=== PATIENT | female | born 1985 | race Caucasian/White ===

== ENCOUNTER → 2016-09-03 | Outpatient (CLI) | payer BC ==
--- NOTE | 2016-09-03 11:31 | XR ---
EXAMINATION TYPE: XR chest 2V DATE OF EXAM ORDERED: 09/03/2016 11:21 AM HISTORY: SARCOID,TMJ PAIN. REFERENCE: None. FINDINGS: The lungs are clear. Pleural spaces are clear. Heart size is normal. IMPRESSION: NORMAL CHEST.
--- NOTE | 2016-09-03 11:32 | XR ---
EXAMINATION TYPE: XR hand complete LT DATE OF EXAM ORDERED: 09/03/2016 11:21 AM HISTORY: ARTHRITIS. COMPARISON: None. FINDINGS: Bone mineral density is maintained. Bony alignment is maintained. No erosive changes seen. There is no fracture or dislocation. Joint spaces appear well maintained. IMPRESSION: NORMAL HAND.
[2016-09-05 12:23] LABS: HLA B27 NEGATIVE; HLA B27 Comment SEEBELOW
== END | disposition home or self-care (01) ==
LOC: LABWHC1 10:37
PROVIDERS: ATTEND Internal Medicine Rheumatology
DX: D86.9 Sarcoidosis, unspecified (principal); M26.629 Arthralgia of temporomandibular joint, unspecified side; M19.90 Unspecified osteoarthritis, unspecified site; M06.4 Inflammatory polyarthropathy
CPT/HCPCS: 36415; 71020; 86812

== ENCOUNTER 2019-02-14 19:09 | Emergency (ER) | payer BC ==
[2019-02-14 19:20] VITALS: TEMP 98.3
[2019-02-14] MEDS ORDERED: SODIUM CHLORIDE 0.9% 1,000 ML IV ONE (19:48)
--- NOTE | 2019-02-14 20:09 | ED ---
General Adult HPI - General Chief complaint: Extremity Problem,Nontraumatic Stated complaint: Hand swelling, rash Time Seen by Provider: 02/14/19 19:27 Source: patient Mode of arrival: ambulatory Limitations: no limitations - History of Present Illness Initial comments: 33-year-old female patient presents to the emergency department today with multiple complaints. Patient states since Monday she has been feeling unwell. Patient states that she had a red, painful lump perform in her right armpit. Patient states [place] is at the beach [place] when she started to feel hot with painful joints. Patient states that she took some ibuprofen. When she got home she had a sore throat and bilateral ear pain. States that she took her temperature was 99.9F. Patient states that symptoms resolved the next day however she still feels achy like her skin is tight over her joints. She states she also developed some pain to the bottom of her left foot. States today she noticed a rash over her legs. States the rash is not itchy. Patient does have past medical history of an undiagnosed autoimmune disorder, MTHFR, and arthritis. Patient states she has been very fatigued and not able to get out of bed much. Patient did go camping over weekend about a week and half ago. States she did sustain several bugbites, but she is unsure what they were from. She denies any other travel. Patient denies any recent rash, shortness breath, chest pain, abdominal pain, nausea, vomiting, diarrhea, constipation, back pain, numbness, tingling, dizziness, hematuria, dysuria, urinary urgency, urinary frequency, visual changes, or any other complaints. - Related Data Home Medications Medication Instructions Recorded Confirmed Ibuprofen [Motrin Ib] 400 mg PO Q6H PRN 02/14/19 02/14/19 Previous Rx's Medication Instructions Recorded predniSONE 50 mg PO DAILY #5 tablet 02/14/19 Allergies Allergy/AdvReac Type Severity Reaction Status Date / Time acetaminophen [From Vicodin] AdvReac Nausea & Verified 02/14/19 19:58 Vomiting hydrocodone bitartrate AdvReac Nausea & Verified 02/14/19 19:58 [From Vicodin] Vomiting iron AdvReac Nausea & Verified 02/14/19 19:58 Vomiting PAPER TAPE Allergy Rash/Hives Uncoded 02/14/19 19:58 Review of Systems ROS Statement: Those systems with pertinent positive or pertinent negative responses have been documented in the HPI. ROS Other: All systems not noted in ROS Statement are negative. Past Medical History Additional Past Medical History / Comment(s): mthfr clotting disorder, factor 2 History of Any Multi-Drug Resistant Organisms: None Reported Past Surgical History: Adenoidectomy, Tonsillectomy Additional Past Surgical History / Comment(s): nasal cauterizations, rhinoplasty, D&C, Past Psychological History: No Psychological Hx Reported Smoking Status: Never smoker Past Alcohol Use History: None Reported Past Drug Use History: None Reported General Exam Limitations: no limitations General appearance: alert, in no apparent distress, other (This is a well- developed, well-nourished adult female patient in no acute distress. Vital signs upon presentation are temperature 98.3F, pulse 108, respirations 18, blood pressure 149/77, pulse ox 100% on room air.) Eye exam: Present: normal appearance, PERRL, EOMI. Absent: scleral icterus, conjunctival injection, periorbital swelling ENT exam: Present: normal exam, normal oropharynx, mucous membranes moist Respiratory exam: Present: normal lung sounds bilaterally. Absent: respiratory distress, wheezes, rales, rhonchi, stridor Cardiovascular Exam: Present: regular rate, normal rhythm, normal heart sounds. Absent: systolic murmur, diastolic murmur, rubs, gallop, clicks GI/Abdominal exam: Present: soft, normal bowel sounds. Absent: distended, tenderness, guarding, rebound, rigid Neurological exam: Present: alert, oriented X3, CN II-XII intact Psychiatric exam: Present: normal affect, normal mood Skin exam: Present: warm, dry, intact, normal color, rash (Petechial rash noted to the bilateral lower extremities) Expanded Type of lesion: Present: abscess (small 1cm abscess noted to right axillary region, area is indurated. No fluctuance. Tender to touch. ) Course Vital Signs 02/14/19 19:14 Temperature 98.3 F Pulse Rate 108 H Respiratory 18 Rate Blood Pressure 149/77 O2 Sat by Pulse 100 Oximetry Medical Decision Making - Medical Decision Making 33-year-old female patient presents to the emergency department today for evaluation of multiple complaints. Physical examination was significant for a small 1cm indurated abscess to the right axillary region and a petechial rash to the bilateral lower extremities. Patient was also complaining of joint pain, left foot pain, and right thenar eminence swelling. Labs reviewed and were unremarkable. Lyme panel is pending. IV fluids given. Upon re-evaluation patient is resting comfortably in bed. Denies any improvement in symptoms. I discussed all findings. Did discuss that symptoms could be related to a viral illness. She will be given a short course of steroids and instructed to follow-up with her primary care physician for further evaluation as soon as possible. Return parameters discussed in detail. She verbalizes understanding and agrees with this plan. - Lab Data Result diagrams: 02/14/19 20:10 02/14/19 20:10 Lab Results 02/14/19 02/14/19 02/14/19 Range/Units 20:10 20:10 20:10 WBC 5.2 (3.8-10.6) k/uL RBC 4.45 (3.80-5.40) m/uL Hgb 13.2 (11.4-16.0) gm/dL Hct 38.0 (34.0-46.0) % MCV 85.5 (80.0-100.0) fL MCH 29.7 (25.0-35.0) pg MCHC 34.8 (31.0-37.0) g/dL RDW 13.3 (11.5-15.5) % Plt Count 173 (150-450) k/uL Neutrophils % 59 % Lymphocytes % 26 % Monocytes % 6 % Eosinophils % 5 % Basophils % 1 % Neutrophils # 3.1 (1.3-7.7) k/uL Lymphocytes # 1.4 (1.0-4.8) k/uL Monocytes # 0.3 (0-1.0) k/uL Eosinophils # 0.3 (0-0.7) k/uL Basophils # 0.0 (0-0.2) k/uL PT 9.7 (9.0-12.0) sec INR 0.9 (<1.2) APTT 27.2 (22.0-30.0) sec Sodium 140 (137-145) mmol/L Potassium 3.9 (3.5-5.1) mmol/L Chloride 103 (98-107) mmol/L Carbon Dioxide 26 (22-30) mmol/L Anion Gap 11 mmol/L BUN 11 (7-17) mg/dL Creatinine 0.71 (0.52-1.04) mg/dL Est GFR (CKD-EPI)AfAm >90 (>60 ml/min/1.73 sqM) Est GFR (CKD-EPI)NonAf >90 (>60 ml/min/1.73 sqM) Glucose 92 (74-99) mg/dL Calcium 9.4 (8.4-10.2) mg/dL Total Bilirubin 0.3 (0.2-1.3) mg/dL AST 40 H (14-36) U/L ALT 49 (9-52) U/L Alkaline Phosphatase 84 (38-126) U/L Total Protein 7.5 (6.3-8.2) g/dL Albumin 4.4 (3.5-5.0) g/dL Urine Color Urine Appearance (Clear) Urine pH (5.0-8.0) Ur Specific [place] (1.001-1.035) Urine Protein (Negative) Urine Glucose (UA) (Negative) Urine Ketones (Negative) Urine Blood (Negative) Urine Nitrite (Negative) Urine Bilirubin (Negative) Urine Urobilinogen (<2.0) mg/dL Ur Leukocyte Esterase (Negative) Urine HCG, Qual (Not Detectd) 02/14/19 02/14/19 Range/Units 20:30 20:30 WBC (3.8-10.6) k/uL RBC (3.80-5.40) m/uL Hgb (11.4-16.0) gm/dL Hct (34.0-46.0) % MCV (80.0-100.0) fL MCH (25.0-35.0) pg MCHC (31.0-37.0) g/dL RDW (11.5-15.5) % Plt Count (150-450) k/uL Neutrophils % % Lymphocytes % % Monocytes % % Eosinophils % % Basophils % % Neutrophils # (1.3-7.7) k/uL Lymphocytes # (1.0-4.8) k/uL Monocytes # (0-1.0) k/uL Eosinophils # (0-0.7) k/uL Basophils # (0-0.2) k/uL PT (9.0-12.0) sec INR (<1.2) APTT (22.0-30.0) sec Sodium (137-145) mmol/L Potassium (3.5-5.1) mmol/L Chloride (98-107) mmol/L Carbon Dioxide (22-30) mmol/L Anion Gap mmol/L BUN (7-17) mg/dL Creatinine (0.52-1.04) mg/dL Est GFR (CKD-EPI)AfAm (>60 ml/min/1.73 sqM) Est GFR (CKD-EPI)NonAf (>60 ml/min/1.73 sqM) Glucose (74-99) mg/dL Calcium (8.4-10.2) mg/dL Total Bilirubin (0.2-1.3) mg/dL AST (14-36) U/L ALT (9-52) U/L Alkaline Phosphatase (38-126) U/L Total Protein (6.3-8.2) g/dL Albumin (3.5-5.0) g/dL Urine Color Yellow Urine Appearance Clear (Clear) Urine pH 5.5 (5.0-8.0) Ur Specific [place] 1.016 (1.001-1.035) Urine Protein Negative (Negative) Urine Glucose (UA) Negative (Negative) Urine Ketones Negative (Negative) Urine Blood Negative (Negative) Urine Nitrite Negative (Negative) Urine Bilirubin Negative (Negative) Urine Urobilinogen <2.0 (<2.0) mg/dL Ur Leukocyte Esterase Negative (Negative) Urine HCG, Qual Not Detected (Not Detectd) Disposition Clinical Impression: Petechiae, Joint pain, Viral syndrome, Swelling of right hand, Foot pain, Abscess of right axilla Disposition: HOME SELF-CARE Condition: Good Instructions (If sedation given, give patient instructions): Abscess (ED), Viral Syndrome (ED) Additional Instructions: Increase fluids. Complete steroid prescription in full. Rest. Follow-up with your primary care physician for recheck in 1-2 days. Return to the emergency department immediately for any new, worsening, or concerning symptoms Prescriptions: predniSONE 50 mg PO DAILY #5 tablet Is patient prescribed a controlled substance at d/c from ED?: No Referrals: Navin Angela MD [Primary Care Provider] - 1-2 days Time of Disposition: 22:13
[2019-02-14 20:22] LABS: Basophils % (A) 1 %; Eosinophils # (A) 0.3 k/uL (0-0.7); Eosinophils % (A) 5 %; HGB 13.2 gm/dL (11.4-16.0); Lymphocytes # (A) 1.4 k/uL (1.0-4.8); Lymphocytes % (A) 26 %; MCH 29.7 pg (25.0-35.0); MCHC 34.8 g/dL (31.0-37.0); MCV 85.5 fL (80.0-100.0); Mean Platelet Volume 7.1; Monocytes # (A) 0.3 k/uL (0-1.0); Monocytes % (A) 6 %; Neutrophils # (A) 3.1 k/uL (1.3-7.7); Neutrophils % (A) 59 %; Platelet Count 173 k/uL (150-450); RBC 4.45 m/uL (3.80-5.40); RDW 13.3 % (11.5-15.5); WBC 5.2 k/uL (3.8-10.6)
[2019-02-14 20:42] LABS: ALT 49 U/L (9-52); AST 40 U/L (14-36); African American GFR (CKD) >90 (>60 ml/min/1.73 sqM); Albumin 4.4 g/dL (3.5-5.0); Alkaline Phosphatase 84 U/L (38-126); Anion Gap 11 mmol/L; Blood Urea Nitrogen 11 mg/dL (7-17); Calcium 9.4 mg/dL (8.4-10.2); Carbon Dioxide 26 mmol/L (22-30); Chloride 103 mmol/L (98-107); Glucose 92 mg/dL (74-99); Potassium 3.9 mmol/L (3.5-5.1); Sodium 140 mmol/L (137-145); Total Bilirubin 0.3 mg/dL (0.2-1.3); Total Protein 7.5 g/dL (6.3-8.2)
[2019-02-14 20:45] LABS: INR 0.9 (<1.2); Partial Thromboplastin Time 27.2 sec (22.0-30.0); Prothrombin Time 9.7 sec (9.0-12.0)
[2019-02-14 21:35] LABS: Appearance,Urine Clear (Clear); Bilirubin,Urine Negative (Negative); Blood,Urine Negative (Negative); Color,Urine Yellow; Glucose,Urine (UA) Negative (Negative); Ketones,Urine Negative (Negative); Leukocyte Esterase,Urine Negative (Negative); Nitrite,Urine Negative (Negative); PH, Urine 5.5 (5.0-8.0); Protein,Urine Negative (Negative); Specific Gravity,Urine 1.016 (1.001-1.035); Urobilinogen,Urine <2.0 mg/dL (<2.0)
[2019-02-14] MEDS ORDERED: predniSONE 50 MG TAB PO STA (22:11)
[2019-02-14 22:37] VITALS: BP 107/60; PULSE 77; RESP 16
[2019-02-15 09:44] LABS: Lyme IgG/IgM 0.32 Index
== END 2019-02-14 22:44 | disposition home or self-care (01) ==
LOC: EC 19:09
DX: B34.9 Viral infection, unspecified (principal); L02.411 Cutaneous abscess of right axilla; R23.3 Spontaneous ecchymoses; M79.89 Other specified soft tissue disorders; M79.672 Pain in left foot; R21 Rash and other nonspecific skin eruption; M19.90 Unspecified osteoarthritis, unspecified site; Z88.5 Allergy status to narcotic agent; Z88.6 Allergy status to analgesic agent; Z91.048 Other nonmedicinal substance allergy status; Z79.1 Long term (current) use of non-steroidal anti-inflammatories (NSAID); Z90.89 Acquired absence of other organs
CPT/HCPCS: 36415; 80053; 85025; 85610; 85730; 81003; 81025; 86618; 99283; 96360; 96361; J7512

== ENCOUNTER → 2021-04-28 | Outpatient (CLI) | payer BC ==
--- NOTE | 2021-04-28 15:56 | US ---
EXAMINATION TYPE: US st tissue neck DATE OF EXAM: 04/28/2021 COMPARISON: NONE CLINICAL HISTORY: 36-year-old female R22.1 Localized swelling, mass and lump, neck. Probable area fel t on midline neck since September 2020, patient states it is growing TECHNIQUE: Targeted ultrasound examination along the anterior midline neck at the palpable site. FINDINGS: Communication And Outreach Manager notes: Soft tissue scan produces no obvious abnormality IMPRESSION: Targeted scanning along the anterior midline shows no discrete abnormality. Clinical follow-up recomm ended. If there is a persistently enlarging abnormality, consider contrast-enhanced CT neck.
== END | disposition home or self-care (01) ==
LOC: RADUSWWP 15:17
PROVIDERS: ATTEND Family Medicine
DX: R22.1 Localized swelling, mass and lump, neck (principal)
CPT/HCPCS: 76536

== ENCOUNTER → 2021-05-18 | Outpatient (CLI) | payer BC ==
--- NOTE | 2021-05-18 16:23 | CT ---
EXAMINATION TYPE: CT soft tissue neck wo/w con DATE OF EXAM: 05/18/2021 3:41 PM COMPARISON: HISTORY: anterior neck swelling CT DLP: 882.1 mGycm Automated exposure control for dose reduction was used. CONTRAST: CT scan of the neck is performed following without and with IV Contrast, patient injected with 100 mL of Isovue 300. Axial images are obtained, coronal and sagittal reformatted images are reviewed. FINDINGS: Lung apices are clear. Thyroid enhances normally. No pathologic adenopathy. Shotty adenopat hy is seen within the compartments of the neck bilaterally. Submandibular and parotid glands have a normal appearance. Mild hypertrophic and degenerative change C5-C6. Airway is patent. Vocal cords are normal. Base of the tongue symmetric. Oropharynx and nasopharynx sy mmetric. Orbits are symmetric. Intracranial structures have a normal appearance IMPRESSION: 1. No suspicious mass or adenopathy. If symptoms persist or there is a clinically palpable lesion con drywall stripper helper ultrasound.
== END | disposition home or self-care (01) ==
LOC: RADCTMAIN 15:06
PROVIDERS: ATTEND Family Medicine
DX: R22.1 Localized swelling, mass and lump, neck (principal)
CPT/HCPCS: 70492; Q9967

== ENCOUNTER → 2022-02-09 | Outpatient (CLI) | payer OTHER ==
--- NOTE | 2022-02-17 09:49 | USB ---
Patient History: Menarche at age 14. First Full-Term at age 24. Patient used Hormonal Contraceptives for 1 year. Findings: Whole bilateral breast ultrasound including evaluation of subareolar and axillary regions.. No concerning solid or cystic mass or abnormal fluid collection is seen on images saved. Overall Assessment: Negative, BI-RAD 1 Management: Screening Mammogram of both breasts at age 42. Manage patient's symptoms clinically. Electronically signed and approved by: Toney Hoffman M.D.
--- NOTE | 2022-02-17 11:22 | MM ---
Reason for Exam: Clinical finding. Baseline mammogram. Indicated Problems: Pain of both sides for 6 Month(s). Patient History: Menarche at age 14. First Full-Term at age 24. Patient used Hormonal Contraceptives for 1 year. Last menstrual period: 02/03/2022 Prior Study Comparison: Patient's first Mammogram. No prior studies available for comparison. Tissue Density: The breast tissue is heterogeneously dense. This may lower the sensitivity of mammography. Findings: Analyzed By CAD. No suspicious focal mass or worrisome group of microcalcification in either breast. Overall Assessment: Negative, BI-RAD 1 Management: Screening Mammogram of both breasts at age 42. Manage patient clinical symptoms on clinical basis. Electronically signed and approved by: Toney Hoffman M.D.
== END | disposition home or self-care (01) ==
LOC: RADMAMWWP 08:02
PROVIDERS: ATTEND Family Medicine
DX: Z12.31 Encounter for screening mammogram for malignant neoplasm of breast (principal)
CPT/HCPCS: 77062; 77066

== ENCOUNTER → 2023-11-24 | Outpatient (CLI) | payer BC ==
--- NOTE | 2023-11-24 19:00 | CA ---
Transthoracic Echo Report Name: Ifrah Zhou Age: 38 Gender: F : 1985 Exam Date: 11/24/2023 16:57 Exam Location: [facility] Ht (in): 61 Wt (lb): 109 Ordering Physician: Navin Angela MD Attending/Referring Phys: Navin Angela MD Visual Display Manager Etta Prater [facility] Procedure CPT: Indications: R06.00 DYSPNEA, UNSPECIFIED Cardiac Hx: Technical Quality: Good Contrast 1: Total Dose (mL): Contrast 2: Total Dose (mL): MEASUREMENTS (Male / Female) Normal Values 2D ECHO LV Diastolic Diameter PLAX 3.8 cm 4.2 - 5.9 / 3.9 - 5.3 cm LV Systolic Diameter PLAX 2.3 cm IVS Diastolic Thickness 0.7 cm 0.6 - 1.0 / 0.6 - 0.9 cm LVPW Diastolic Thickness 0.7 cm 0.6 - 1.0 / 0.6 - 0.9 cm LV Relative Wall Thickness 0.4 RV Internal Dim ED PLAX 2.6 cm LVOT Diameter 2.0 cm LV Diastolic Volume MOD BP 85.4 cm??? 67 - 155 / 56 - 104 cm??? LV Systolic Volume MOD BP 28.0 cm??? 22 - 58 / 19 - 49 cm??? LV Ejection Fraction MOD BP 67.2 % >= 55 % LV Cardiac Index MOD BP 4405.0 cm???/min???m??? LV Diastolic Volume MOD 4C 84.4 cm??? LV Systolic Volume MOD 4C 28.1 cm??? LV Ejection Fraction MOD 4C 66.8 % LV Cardiac Index MOD 4C 4324.6 cm???/min???m??? LV Diastolic Length 4C 8.0 cm LV Systolic Length 4C 6.7 cm LV Diastolic Volume MOD 2C 80.2 cm??? LV Systolic Volume MOD 2C 24.2 cm??? LV Ejection Fraction MOD 2C 69.9 % LV Cardiac Index MOD 2C 4298.5 cm???/min???m??? LV Diastolic Length 2C 7.4 cm LV Systolic Length 2C 5.7 cm LA Volume 31.4 cm??? 18 - 58 / 22 - 52 cm??? LA Volume Index 21.5 cm???/m??? 16 - 28 cm???/m??? Ascending Aorta Diameter 2.9 cm DOPPLER AV Peak Velocity 121.3 cm/s AV Peak Gradient 5.9 mmHg AV Mean Velocity 84.1 cm/s AV Mean Gradient 3.1 mmHg AV Velocity Time Integral 21.6 cm LVOT Peak Velocity 86.1 cm/s LVOT Peak Gradient 3.0 mmHg LVOT Velocity Time Integral 16.2 cm LVOT Stroke Volume 52.1 cm??? LVOT Stroke Volume Index 35.7 ml/m??? LVOT Cardiac Index 3999.0 cm???/min???m??? AV Area Cont Eq vti 2.4 cm??? AV Area Cont Eq pk 2.3 cm??? TR Peak Velocity 209.9 cm/s TR Peak Gradient 17.6 mmHg Right Atrial Pressure 5.0 mmHg Pulmonary Artery Systolic Pressu 22.6 mmHg Right Ventricular Systolic Press 22.6 mmHg PV Peak Velocity 110.7 cm/s PV Peak Gradient 4.9 mmHg FINDINGS Left Ventricle Left ventricular ejection fraction is estimated at 60-65 %. Left ventricular cavity size normal. Left ventricular wall thickness normal. No obvious regional wall motion abnormalities. Right Ventricle Normal right ventricular size and function. Right ventricular systolic pressure within normal limits. Right Atrium Normal right atrial size. Left Atrium Normal left atrial size. Mitral Valve Structurally normal mitral valve. No mitral stenosis, regurgitation or prolapse. Aortic Valve Trileaflet aortic valve. No aortic valve stenosis or regurgitation. Tricuspid Valve Structurally normal tricuspid valve. No tricuspid stenosis. Trace tricuspid regurgitation. Pulmonic Valve Structurally normal pulmonic valve. No pulmonic stenosis. No pulmonic regurgitation. Pericardium No pericardial effusion. Aorta Normal size aortic root and proximal ascending aorta. CONCLUSIONS Normal biventricular dimension and systolic function Hyperdynamic interatrial septum Normal intracardiac valves No evidence of pericardial effusion Previewed by: Dr. Ildefonso Gudino MD (Electronically Signed) Final Date: 24 November 2023 18:59
== END | disposition home or self-care (01) ==
LOC: RADECHMAIN 16:53
PROVIDERS: ATTEND Family Medicine
DX: Q20.8 Other congenital malformations of cardiac chambers and connections (principal); R06.00 Dyspnea, unspecified
CPT/HCPCS: 93306

== ENCOUNTER → 2024-04-25 | Day surgery (SDC) | payer BC ==
[2024-04-24 09:13] VITALS: BMI 20.7
[2024-04-25 07:04] VITALS: BP 124/78; RESP 14; TEMP 98
[2024-04-25] MEDS: IV FLUID CONTINUATION 1,000 ML IV ONE (07:22)
[2024-04-25] MEDS: SODIUM CHLORIDE 0.9% 500 ML 500 ML IV SCH (07:25)
[2024-04-25] MEDS: SODIUM CHLORIDE 0.9% 1,000 ML IV SCH (07:25)
--- NOTE | 2024-04-25 11:43 | P.EPPROC ---
- EP Procedure Note Electrophysiology Procedure Note: Diagnosis Recurrent syncope 12 EKG shows sinus rhythm normal KS narrow QRS normal QT interval Tilt table test per protocol. Baseline blood pressure 113/83 mmHg baseline heart rate 96 beats a minute Patient was tilted upright in manual of 70 degrees per protocol While the blood pressure remained stable without any hypotensive episodes, heart rate increased immediately 223 beats a minute and thereafter remained around 120-130 beats a minute. She felt hot and nauseous through the procedure No secondary neurocardiogenic phenomena When she was laid supine her heart rate decreased down to 93 beats a minute Impression Normal twelve-lead EKG Orthostatic intolerance/POTS
== END ==
LOC: CATHEP 06:14
PROVIDERS: ATTEND Internal Medicine Clinical Cardiac Electrophysiology
DX: R55 Syncope and collapse (principal); I95.9 Hypotension, unspecified; Z79.899 Other long term (current) drug therapy; Z88.6 Allergy status to analgesic agent; Z88.1 Allergy status to other antibiotic agents; Z88.5 Allergy status to narcotic agent
CPT/HCPCS: 81025; 93660

== ENCOUNTER → 2024-07-29 | Outpatient (CLI) | payer BC ==
[2024-07-29 15:12] LABS: Basophils # (A) 0.02 X 10*3/uL (0.00-0.10); Basophils % (A) 0.4 %; Eosinophils # (A) 0.11 X 10*3/uL (0.04-0.35); Eosinophils % (A) 2.3 %; HCT 40.3 % (37.2-46.3); HGB 13.3 g/dL (12.0-15.0); Lymphocytes # (A) 1.31 X 10*3/uL (0.90-5.00); Lymphocytes % (A) 26.9 %; MCH 30.1 pg (27.0-32.0); MCV 91.2 FL (80.0-97.0); Mean Platelet Volume 11.2 FL (9.5-12.2); Monocytes # (A) 0.63 X 10*3/uL (0.20-1.00); Monocytes % (A) 12.9 %; NRBC Per 100 WBC 0 X 10*3/uL (0.00-0.01); Neutrophils # (A) 2.79 X 10*3/uL (1.80-7.70); Neutrophils % (A) 57.3 %; Platelet Count 172 X 10*3/uL (140-440); RBC 4.42 X 10*6/uL (4.10-5.20); WBC 4.87 X 10*3/uL (4.50-10.00)
[2024-07-29 15:33] LABS: ALT 21 U/L (8-44); AST 23 U/L (13-35); Albumin 4.2 g/dL (3.8-4.9); Albumin/Globulin Ratio 1.91 Ratio (1.60-3.17); Alkaline Phosphatase 55 U/L (41-126); BUN/Creat Ratio 18.25 Ratio (12.00-20.00); Blood Urea Nitrogen 14.6 mg/dL (9.0-27.0); Calcium 8.9 mg/dL (8.7-10.3); Carbon Dioxide 24.5 mmol/L (21.6-31.8); Chloride 107 mmol/L (96-109); Globulin 2.2 g/dL (1.6-3.3); Glucose 89 mg/dL (70-110); LDL Cholesterol,Calculated 107.4 mg/dL (0.0-131.0); Potassium 4.6 mmol/L (3.5-5.5); Sodium 141 mmol/L (135-145); Total Bilirubin 0.4 mg/dL (0.3-1.2); Total Protein 6.4 g/dL (6.2-8.2); VLDL Calculation 7.98 mg/dL (5.00-40.00)
== END | disposition home or self-care (01) ==
LOC: LABWHC1 09:48
DX: Z00.01 Encounter for general adult medical examination with abnormal findings (principal); G90.A Postural orthostatic tachycardia syndrome [POTS]
CPT/HCPCS: 36415; 80053; 80061; 83036; 84443; 85025